=== PATIENT | male | born 1980 | race Caucasian/White ===

== ENCOUNTER 2017-04-20 02:45 | Emergency (ER) | payer SELFPAY ==
[~2017-04-20] VITALS: Ht 177.8 cm; Wt 95.3 kg
--- NOTE | 2017-04-20 02:45 | NUR ---
Patient was BIBA and taken to bed 10 via gurney per EMS.
[2017-04-20 02:48] VITALS: BP 111/62
--- NOTE | 2017-04-20 03:15 | NUR ---
36Y/M PT. BIBA FOR MECHANICAL FALL WITH LAC TO LEFT EYEBROW. PT STATES HE HAD 10 TALL CANS OF ETOH WITH UNKNOWN AMOUNT OF ETOH SHOTS; PT DENIES ANY LOC/KO. AAO X3, ETOH, GCS 15. BOTH PUPILS 4 MM, PERRA. RESPRITATIONS ROOM AIR, EVEN AND UNLABORED. LT. EYEBROW LACERATION. NO ACTIVE BLEEDING AT THIS TIME. NO S/SX OF THIS TIME. ER MADE AWARE OF PT. STATUS.
--- NOTE | 2017-04-20 04:00 | NUR ---
DR. REYNOLDS PERFORMS SUTURE AT BEDSIDE. APPLIED BACTERICIN TO LT. EYEBROW SUTURE AND ABRATION TO FACE. COVER WITH DRY DRESSING.
[2017-04-20] MEDS ORDERED: BACITRACIN OINT 500 UNITS/GM PKT TP ONE ×2 (04:15→04:20)
--- NOTE | 2017-04-20 04:28 | NUR ---
PT. AAO X4, AMBULATORY WITH STEADY GAIT.
[2017-04-20 04:38] VITALS: BP 107/69
--- NOTE | 2017-04-20 04:39 | NUR ---
Patient discharged with v/s stable. Written and verbal after care instructions given and explained. Patient alert, oriented and verbalized understanding of instructions. Ambulatory with steady gait. All questions addressed prior to discharge. ID band removed. Patient advised to follow up with PMD. Rx of BACTERICIN OINTMENT given. Patient educated on indication of medication including possible reaction and side effects. Opportunity to ask questions provided and answered.
== END 2017-04-20 04:39 | disposition home or self-care (01) ==
LOC: MED 02:45
DX: S01.112A Laceration without foreign body of left eyelid and periocular area, initial encounter (principal); S00.81XA Abrasion of other part of head, initial encounter; F10.129 Alcohol abuse with intoxication, unspecified; X58.XXXA Exposure to other specified factors, initial encounter; Y93.89 Activity, other specified; Y92.89 Other specified places as the place of occurrence of the external cause; Y99.8 Other external cause status
CPT/HCPCS: 99283

== ENCOUNTER 2017-12-06 15:12 | Emergency (ER) | payer OTHER ==
[~2017-12-06] VITALS: Ht 180.3 cm; Wt 77.6 kg
[2017-12-06 15:39] VITALS: BP 149/80
--- NOTE | 2017-12-06 15:45 | NUR ---
patient to lobby awaiting available room
--- NOTE | 2017-12-06 17:41 | NUR ---
PT AMBULATES TO BED 2
[2017-12-06] MEDS ORDERED: CLINDAMYCIN 600 MG/4 ML VIAL IM ONE (18:10)
--- NOTE | 2017-12-06 18:30 | NUR ---
pt resting comfortably in [facility] at this time. vss. rr even and unlabored. safety precautions in place. will continue to monitor.
[2017-12-06 19:11] VITALS: BP 134/74
--- NOTE | 2017-12-06 19:12 | NUR ---
Patient discharged with v/s stable. Written and verbal after care instructions given and explained. Patient alert, oriented and verbalized understanding of instructions. Ambulatory with steady gait. All questions addressed prior to discharge. ID band removed. Patient advised to follow up with PMD. Rx of Keflex and Doxycycline given. Patient educated on indication of medication including possible reaction and side effects. Opportunity to ask questions provided and answered.
== END 2017-12-06 19:12 | disposition home or self-care (01) ==
LOC: MED 15:12
DX: L73.9 Follicular disorder, unspecified (principal)
CPT/HCPCS: 96372; 99283; J3490

== ENCOUNTER 2021-02-27 20:40 | Emergency (ER) | payer SELFPAY ==
[~2021-02-27] VITALS: Ht 180.3 cm; Wt 77.1 kg
[2021-02-27 20:53] VITALS: BP 141/82
--- NOTE | 2021-02-27 20:53 | NUR ---
TO BED AMBULATORY
--- NOTE | 2021-02-27 21:12 | NUR ---
Dr. Diaz examining patient.
--- NOTE | 2021-02-27 21:24 | NUR ---
PT RETURN FROM RAD TO LOBBY
[2021-02-27 21:26] LABS: BASOPHILS # (AUTO) 0.1 K/uL (0.00-0.22); BASOPHILS % (AUTO) 0.8 % (0.0-2.0); EOSINOPHILS # (AUTO) 0.3 K/uL (0-0.4); EOSINOPHILS % (AUTO) 2.6 % (0.0-4.0); HEMATOCRIT 49.8 % (36-52); HEMOGLOBIN 17.5 g/dL (12.0-18.0); LYMPHOCYTES % (AUTO) 20.5 % (20.5-51.1); MEAN CORPUSCULAR HEMOGLOBIN 33 pg (27-31); MEAN CORPUSCULAR HGB CONC 35 g/dL (33-37); MEAN CORPUSCULAR VOLUME 93.1 fL (80-94); MONOCYTES # (AUTO) 0.7 K/uL (0.8-1.0); MONOCYTES % (AUTO) 7.7 % (1.7-9.3); NEUTROPHILS # (AUTO) 6.6 K/uL (1.8-7.7); NEUTROPHILS % (AUTO) 68.4 % (42.2-75.2); PLATELET COUNT (AUTO) 241 K/uL (140-450); RED BLOOD CELL COUNT(AUTO) 5.35 MIL/uL (4.20-6.10); RED CELL DISTRIBUTION WIDTH 12.1 % (11.6-13.7); WHITE BLOOD COUNT (AUTO) 9.6 K/uL (4.8-10.8)
--- NOTE | 2021-02-27 21:30 | NUR ---
PT AMB TO BED 11
[2021-02-27 21:48] LABS: ALBUMIN 4.1 g/dL (3.4-5.0); ANION GAP 11.4 (8-16); CARBON DIOXIDE 29.1 mmol/L (21-32); POTASSIUM 4.5 mmol/L (3.5-5.1); TOTAL BILIRUBIN 0.5 mg/dL (0.0-1.0)
--- NOTE | 2021-02-27 22:37 | NUR ---
patient ambulated to the bathroom
[2021-02-27] MEDS ORDERED: METF-988 PO (22:48)
[2021-02-27 22:54] VITALS: BP 123/74
--- NOTE | 2021-02-27 22:54 | NUR ---
Patient discharged with v/s stable. Written and verbal after care instructions given and explained. Patient alert, oriented and verbalized understanding of instructions. Ambulatory with steady gait. All questions addressed prior to discharge. ID band removed. Patient advised to follow up with PMD. Rx of metformin hcl given. Patient educated on indication of medication including possible reaction and side effects. Opportunity to ask questions provided and answered.
== END 2021-02-27 22:54 | disposition home or self-care (01) ==
LOC: MED 20:40
DX: R07.9 Chest pain, unspecified (principal); E11.9 Type 2 diabetes mellitus without complications; I10 Essential (primary) hypertension; F17.210 Nicotine dependence, cigarettes, uncomplicated
CPT/HCPCS: 36415; 71045; 80053; 84484; 85025; 93005; 99285